=== PATIENT | female | born 1980 | race Caucasian/White ===

== ENCOUNTER 2016-08-20 08:55 | Outpatient (CLI) | payer OTHER ==
[2015-11-26 22:53] VITALS: BP 122/78
== END 2016-08-20 08:56 ==
LOC: LABRHC 08:55
PROVIDERS: ATTEND Physician Assistant
DX: N30.01 Acute cystitis with hematuria (principal)
CPT/HCPCS: 87088; 87186

== ENCOUNTER 2016-11-27 15:50 | Outpatient (CLI) | payer OTHER ==
[2015-11-26 22:53] VITALS: BP 122/78
[2016-11-27 16:08] LABS: BASOPHILS % 0.3 (0.0-1.5); EOSINOPHILS % 3.7 % (0.0-6.8); MEAN CORPUSCULAR VOLUME 92.9 fl (80.0-100.0); MONOCYTES % 2.7 % (0.0-11.0); NEUTROPHILS # 4.2 # k/uL (1.4-7.7)
[2016-11-27 16:47] LABS: eGFR (African) > 60; eGFR (Non-African) > 60
--- NOTE | 2016-11-27 17:26 | Diagnostic Imaging Report ---
[facility] [address] [facility].[address] [address] Report Submission Date: Nov 27, 2016 4:49:58 PM CDT Patient Study Name: ESSIE SCOTT Date: Nov 27, 2016 4:21:17 PM CDT Modality Type: CT\SR Gender: F Description: CT ABD & PELVIS W/ CON : 82 Institution: [facility] Physician: SEAMUS LONGORIA CT Abdomen/pelvis History: RLQ PAIN AND TENDERNESS. LOSS OF APPETITE AND NAUSEA Multiple axial images of the abdomen and pelvis are submitted with reconstructions Findings: No comparison studies Clear lung bases No free intraperitoneal air No acute osseous pathology The liver, gallbladder spleen, right adrenal gland, pancreas, kidneys are within normal limits. No hydronephrosis bilaterally Nodular left adrenal gland. Pelvic phleboliths Fat stranding in the right lower quadrant, appendix is distended measuring 1.4 cm with wall enhancement and minimal adjacent free fluid Impression: Acute appendicitis. Small amount of free fluid is seen adjacent to the appendix with fat stranding Distal loops of small bowel are fluid-filled, likely ileus No hydronephrosis bilaterally Electronically signed on Nov 27, 2016 4:49:58 PM CDT by: Loretta PIÑA
== END 2016-11-27 15:52 ==
LOC: LAB 15:50
PROVIDERS: ATTEND Physician Assistant
DX: R10.31 Right lower quadrant pain (principal)
CPT/HCPCS: 36415; 74177; 80053; 85025; Q9966

== ENCOUNTER 2017-02-12 22:35 | Emergency (ER) | payer OTHER ==
[2017-02-13] MEDS: KETOROLAC TROMETHAMINE 60 MG/2 ML VIAL IM ONE (01:41)
[2017-02-13 02:02] VITALS: BP 131/82
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
== END 2017-02-13 01:47 | disposition home or self-care (01) ==
LOC: ED 22:35
DX: S16.1XXA Strain of muscle, fascia and tendon at neck level, initial encounter (principal); X58.XXXA Exposure to other specified factors, initial encounter; Y93.9 Activity, unspecified; Y99.9 Unspecified external cause status
CPT/HCPCS: 70450; 72125; 73080; J1885; 96372; 99283; 99284

== ENCOUNTER → 2017-02-19 | Outpatient (CLI) | payer OTHER ==
[2017-02-13 02:02] VITALS: BP 131/82
--- NOTE | 2017-02-19 15:41 | Diagnostic Imaging Report ---
SEAMUS LONGORIA [facility] [address] [facility] [address] [address] Report Submission Date: Feb 19, 2017 2:59:33 PM CDT Patient Study Name: ESSIE SCOTT Date: Feb 19, 2017 2:40:14 PM CDT Modality Type: CR Gender: F Description: SPINE : 82 Institution: [facility] Physician: SEAMUS LONGORIA Examination: Plain film lumbar spine History: Back discomfort Findings: 3 views of the lumbar spine demonstrate normal height. No anterior compression. No soft tissue abnormalities. Mild lower thoracic degenerative changes: not fully evaluated. Impression: No acute osseous process. Electronically signed on Feb 19, 2017 2:59:33 PM CDT by: Flavio PIÑA
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
== END ==
LOC: RAD 14:17
PROVIDERS: ATTEND Physician Assistant
DX: M54.5 Low back pain (principal)
CPT/HCPCS: 72100; 73521